=== PATIENT | female | born 1985 | race Caucasian/White ===

== ENCOUNTER 2016-04-23 15:40 | Emergency (ER) | payer OTHER ==
[2016-04-23 15:52] VITALS: RESP 16
--- NOTE | 2016-04-23 16:45 | ED ---
General Adult HPI - General Chief complaint: Vaginal Bleeding Stated complaint: 5 weeks /Spotting Time Seen by Provider: 04/23/16 16:03 Source: patient, family, RN notes reviewed Mode of arrival: ambulatory Limitations: no limitations - History of Present Illness Initial comments: 31-year-old female presenting for vaginal bleeding in early . Patient states that she thought she was last week by home test. She states her last period was in February but light at that time. She is uncertain how far along she is at this point. She does state that over the past 2 days she has noticed some small amount of spotting. She denies any abdominal pain associated. She denies any nausea or vomiting. She is with a stillborn in her first and a healthy child from her second . She denies any other significant medical problems. She denies any fevers or chills. She denies any urinary symptoms. She denies any vaginal discharge. - Related Data Home Medications Medication Instructions Recorded Confirmed Hydrocodone/Acetaminophen 1 tab PO TID PRN 01/22/15 04/23/16 [Hydrocodon-Acetaminoph 7.5-325] ALPRAZolam [Xanax] 1 mg PO DAILY PRN 04/23/16 04/23/16 Previous Rx's Medication Instructions Recorded Umo-Uleq-Mfhnx Acid 1 cap PO DAILY #30 cap 04/23/16 [-U Capsule] Allergies Allergy/AdvReac Type Severity Reaction Status Date / Time No Known Allergies Allergy Verified 04/23/16 16:17 Review of Systems ROS Statement: Those systems with pertinent positive or pertinent negative responses have been documented in the HPI. ROS Other: All systems not noted in ROS Statement are negative. Past Medical History Past Medical History: No Reported History History of Any Multi-Drug Resistant Organisms: None Reported Past Surgical History: Cholecystectomy, Orthopedic Surgery Additional Past Surgical History / Comment(s): carpal tunnel Past Psychological History: Anxiety, Depression Smoking Status: Current every day smoker Past Alcohol Use History: None Reported Past Drug Use History: Marijuana General Exam - General Exam Comments Initial Comments: General: Awake and Alert. No acute distress. Does not appear acutely ill. Eyes: SANG, EOM intact. No nystagmus. No scleral icterus. HENT: Atraumatic, normocephalic. Mucous membranes moist. Trachea midline. Neck: The neck is supple, there is no tenderness or JVD. Cardiovascular: Regular rate and rhythm. No murmur, rub, or gallop is appreciated. Distal pulses intact. Respiratory: Lungs are clear to auscultation bilaterally. No wheezes, rales, rhonchi. No respiratory distress. Gastrointestinal: Soft, Nontender. No rebound or guarding. Non-distended. No masses or organomegaly noted. No CVA tenderness. Musculoskeletal: No tenderness. Normal ROM. No gross deformity. No strength deficits. Neurological: A&Ox3. CN II-XII grossly intact, There are no obvious motor or sensory deficits. Coordination appears grossly intact. Speech is normal. Skin: Skin is warm and dry and no rashes or lesions are noted. Psychiatric: Cooperative, appropriate mood & affect, normal judgment. Limitations: no limitations Course Vital Signs 04/23/16 04/23/16 15:49 18:00 Temperature 98.1 F 97.8 F Pulse Rate 83 74 Respiratory 16 16 Rate Blood Pressure 124/68 120/70 O2 Sat by Pulse 99 99 Oximetry Medical Decision Making - Medical Decision Making 31-year-old female presenting for vaginal bleeding in early . No significant abdominal tenderness on examination or concerning for peritonitis this time. Lab work showing stable CBC. Stable BMP. Patient does not require RhoGAM at this time. Pelvic ultrasound shows early gestaional sack but no fetus. BHCG reflects early . Patient was reevaluated and remained stable throughout her course in ED. Pt and updated on results and imaging. Discussed reassuring findings at this time but need for close CODER OPERATOR follow up. Discussed pelvic rest and follow -up with CODER OPERATOR. Patient states she is planning to see her PCP next week for referral to OB to follow up with Dr. Robin. Discussed concerning signs symptoms for immediate return to the ED. Patient is agreeable with plan and discharge home. Patient was pried with Rx for vitamins. - Lab Data Result diagrams: 04/23/16 16:29 04/23/16 16:29 Lab Results 04/23/16 04/23/16 04/23/16 Range/Units 16:29 16:29 16:29 WBC 7.7 (3.8-10.6) k/uL RBC 3.97 (3.80-5.40) m/uL Hgb 12.1 (11.4-16.0) gm/dL Hct 37.7 (34.0-46.0) % MCV 95.1 (80.0-100.0) fL MCH 30.4 (25.0-35.0) pg MCHC 32.0 (31.0-37.0) g/dL RDW 12.7 (11.5-15.5) % Plt Count 256 (150-450) k/uL Neutrophils % 59 % Lymphocytes % 32 % Monocytes % 6 % Eosinophils % 1 % Basophils % 0 % Neutrophils # 4.5 (1.3-7.7) k/uL Lymphocytes # 2.5 (1.0-4.8) k/uL Monocytes # 0.4 (0-1.0) k/uL Eosinophils # 0.1 (0-0.7) k/uL Basophils # 0.0 (0-0.2) k/uL Sodium 138 (137-145) mmol/L Potassium 3.8 (3.5-5.1) mmol/L Chloride 102 (98-107) mmol/L Carbon Dioxide 27 (22-30) mmol/L Anion Gap 9 mmol/L BUN 7 (7-17) mg/dL Creatinine 0.58 (0.52-1.04) mg/dL Est GFR (MDRD) Af Amer >60 (>60 ml/min/1.73 sqM) Est GFR (MDRD) Non-Af >60 (>60 ml/min/1.73 sqM) Glucose 95 (74-99) mg/dL Calcium 9.0 (8.4-10.2) mg/dL HCG, Quant 5645.3 mIU/mL Blood Type AB Positive Blood Type Recheck No Antibody Screen NEGATIVE Spec Expiration Date 04/26/2016 - 5689 - Radiology Data Radiology results: report reviewed, image reviewed Disposition Clinical Impression: Vaginal bleeding before 22 weeks gestation Disposition: HOME SELF-CARE Condition: Stable Instructions: First Trimester Vaginal Bleed (ED) Prescriptions: Nez-Jnxb-Lguog Acid [-U Capsule] 1 cap PO DAILY #30 cap Referrals: Soham Simon MD [Primary Care Provider] - 1-2 days Fish Robin DO [Doctor of Osteopathic Medicine] - 1-2 days Time of Disposition: 17:50
[2016-04-23 16:46] LABS: Basophils % (A) 0 %; CHCM 32.8; Eosinophils # (A) 0.1 k/uL (0-0.7); Eosinophils % (A) 1 %; HCT 37.7 % (34.0-46.0); HDW 2.07; HGB 12.1 gm/dL (11.4-16.0); Luc # (Auto) 0.11; Luc % (Auto) 2; Lymphocytes # (A) 2.5 k/uL (1.0-4.8); Lymphocytes % (A) 32 %; MCH 30.4 pg (25.0-35.0); MCV 95.1 fL (80.0-100.0); Mean Platelet Volume 7.8; Monocytes # (A) 0.4 k/uL (0-1.0); Monocytes % (A) 6 %; Neutrophils # (A) 4.5 k/uL (1.3-7.7); Neutrophils % (A) 59 %; RBC 3.97 m/uL (3.80-5.40); RDW 12.7 % (11.5-15.5); WBC 7.7 k/uL (3.8-10.6); WBC (Perox) 7.93
[2016-04-23 16:56] LABS: Anion Gap 9 mmol/L; Blood Urea Nitrogen 7 mg/dL (7-17); Carbon Dioxide 27 mmol/L (22-30); Chloride 102 mmol/L (98-107); Glucose 95 mg/dL (74-99); Non-African American GFR(MDRD) >60 (>60 ml/min/1.73 sqM); Potassium 3.8 mmol/L (3.5-5.1); Sodium 138 mmol/L (137-145)
--- NOTE | 2016-04-23 17:03 | US ---
EXAMINATION TYPE: US OB <= 14 wk fetus DATE OF EXAM: 04/23/2016 4:42 PM COMPARISON: NONE CLINICAL HISTORY: Pain. spotting 2 days ago EXAM PERFORMED: EXAM MEASUREMENTS: GESTATIONAL AGE / DATING Physician Established: not established Dates by LMP: (5 weeks/3 days) EDC: 12/21/2016 Dates by First Scan: this is first scan Dates by Current Scan for: only gestational sac seen at this time MATERNAL ANATOMY Uterus: 9.7 x 5.4 x 7.6 cm Right Ovary: 3.1 x 1.5 x 2.5 cm Left Ovary: 3.9 x 2.7 x 3.7 cm Post CDS / Adnexa: wnl Presence of free fluid: none GESTATION / SURVEY MSD: 0.9 cm measures out of range, too early Yolk Sac (normal less than 6mm): not seen Date of LMP: 03/16/2016 Beta HcG (if available): not available TECHNOLOGIST IMPRESSION: possible early IUP with only gestational sac seen at this time, recommend s erial beta levels and follow up ultrasound. IMPRESSION: There is a intrauterine gestational sac with size that corresponds to 5 weeks 3 days. Follow-up exam is recommended in 14 days to confirm a living fetus if clinically indicated.
[2016-04-23 17:13] LABS: HCG,Quantitative Serum 5645.3 mIU/mL
[2016-04-23 18:01] VITALS: BP 120/70; PULSE 74; TEMP 97.8
== END 2016-04-23 18:00 | disposition home or self-care (01) ==
LOC: EC 15:40
DX: O20.9 Hemorrhage in early pregnancy, unspecified (principal); Z3A.01 Less than 8 weeks gestation of pregnancy; O99.331 Smoking (tobacco) complicating pregnancy, first trimester; F17.200 Nicotine dependence, unspecified, uncomplicated
CPT/HCPCS: 36415; 76801; 80048; 84702; 85025; 86850; 86900; 86901; 99284

== ENCOUNTER → 2016-06-17 | Outpatient (CLI) | payer OTHER ==
--- NOTE | 2016-06-17 10:21 | US ---
EXAMINATION TYPE: US OB <= 14 wk fetus DATE OF EXAM: 06/17/2016 10:06 AM COMPARISON: 04/23/2016 CLINICAL HISTORY: Confirm Dates Z36. EXAM PERFORMED: OBTA EXAM MEASUREMENTS: GESTATIONAL AGE / DATING Physician Established: (13 weeks/2 days) EDC: 12/21/2016 Dates by LMP: unknown Dates by First Scan: ENGINEERING PROJECT MANAGER Dates by Current Scan for: (12 weeks/5 days) EDC: 12/25/2016 MATERNAL ANATOMY Uterus: 11.1 x 11.1 x 9.7cm Right Ovary: 1.9 x 1.6 x 1.4cm Left Ovary: 3.1 x 2.5 x 2.1cm Post CDS / Adnexa: wnl Presence of free fluid: no Presence of corpus luteal cyst: not seen Presence of subchorionic bleed: no GESTATION / SURVEY CRL: 6.3cm (12 weeks/5 days) MSD: wnl Yolk Sac (normal less than 6mm): not seen Heart Rate: 169 bpm Rhythm: Normal IUP: Viable IUP Date of LMP: unknown Beta HcG (if available): not available IMPRESSION: Viable of 12 weeks 5 days with an EDC of 12/25/2016 and a heart rate of 169 bpm
[2016-06-17 10:42] LABS: CH 31.2; CHCM 32.7; HCT 40.9 % (34.0-46.0); HDW 2.08; HGB 13.3 gm/dL (11.4-16.0); MCH 31.1 pg (25.0-35.0); MCHC 32.5 g/dL (31.0-37.0); MCV 95.7 fL (80.0-100.0); Mean Platelet Volume 8.5; RBC 4.27 m/uL (3.80-5.40); WBC 9.5 k/uL (3.8-10.6)
[2016-06-17 10:58] LABS: Glucose 74 mg/dL (74-99); Non-African American GFR(MDRD) >60 (>60 ml/min/1.73 sqM)
[2016-06-18 07:45] LABS: HIV-1/HIV-2 Ab Screen NONREAC (NON REAC)
== END | disposition home or self-care (01) ==
LOC: RADUSWWP 09:34
PROVIDERS: ATTEND Obstetrics & Gynecology
DX: Z36 Encounter for antenatal screening of mother (principal); Z3A.12 12 weeks gestation of pregnancy
CPT/HCPCS: 36415; 76801; 82565; 82947; 85027; 86762; 86780; 86850; 86900; 86901; 87340; 87389

== ENCOUNTER 2016-08-23 17:57 | Outpatient (CLI) | payer OTHER ==
[2016-08-23 18:34] LABS: Amorphous Sediment,Urine Rare /hpf; Appearance,Urine Cloudy (Clear); Bilirubin,Urine Negative (Negative); Glucose,Urine (UA) Negative (Negative); Ketones,Urine Negative (Negative); Leukocyte Esterase,Urine Small (Negative); Mucus,Urine Rare /hpf; Nitrite,Urine Negative (Negative); Particle Count 10276; Protein,Urine Negative (Negative); RBC,Urine 4 /hpf (0-5); Specific Gravity,Urine 1.015 (1.001-1.035); Squamous Epithelial Cell,Urine 4 /hpf (0-4); UA Billing (MACRO vs. MICRO) MICRO; Urobilinogen,Urine <2.0 mg/dL (<2.0); WBC,Urine 2 /hpf (0-5)
[2016-08-23 18:43] VITALS: BP 139/67; PULSE 76; RESP 16; TEMP 98
--- NOTE | 2016-08-23 21:15 | P.MSEPDOC ---
Presenting Problems - Arrival Data Date of Arrival on Unit: 08/23/16 Time of Arrival on Unit: 17:55 Mode of Transport: Ambulatory - Complaint OB-Reason for Admission/Chief Complaint: Other Medical History - Information : 3 Para: 1 Term: 1 : 0 Abortions: Spontaneous or Elective: 0 Number of Living Children: 1 - Gestational Age Expected Date of Delivery: 12/21/16 Gestational Age by OBED (wks/days): 22 Weeks and 6 Days Review of Systems - Review of Systems Constitutional: No problems Breast: No problems ENT: No problems Cardiovascular: No problems Respiratory: No problems Gastrointestinal: No problems Genitourinary: No problems Musculoskeletal: No problems Neurological: No problems Skin: No problems Vital Signs - Temperature Temperature: 98 F Temperature Source: Oral - Pulse Brachial Pulse Rate: 76 Pulse Assessment Method: Automatic Cuff - Respirations Respiratory Rate: 16 Oxygen Delivery Method: Room Air - Blood Pressure Right Arm Blood Pressure: 139/67 Blood Pressure Mean: 91 Blood Pressure Source: Automatic Cuff Medical Screen Scoring (Pre) - Cervical Exam Dilation: Exam Deferred - Uterine Contractions Frequency: N/A Duration: N/A Intensity: N/A - Maternal Vital Signs Maternal Temperature: N/A Maternal Blood Pressure: N/A Signs of Preeclampsia: N/A Maternal Respirations: N/A - Maternal Trauma Maternal Trauma: N/A - Total Score Total Score (Pre): 0 - Level of Risk Level of Risk: N/A Physician Notification (Pre) - Physician Notified Physician Notified Date: 08/23/16 Physician Notified Time: 18:12 Physician/Practitioner Notifed:: alison Spoke With: alison - Notification Comment Comment: would like ua sent. Medical Screen Scoring (Post) - Cervical Exam Dilation: Exam Deferred - Uterine Contractions Frequency: N/A - Maternal Vital Signs Maternal Temperature: N/A Maternal Blood Pressure: N/A Signs of Preeclampsia: N/A Maternal Respirations: N/A - Maternal Trauma Maternal Trauma: N/A - Assessment Position: N/A Station: N/A - Total Score Total Score (Post): 0 - Post Treatment Level of Risk Post Treatment Level of Risk: N/A Physician Notification (Post) - Physician Notified Physician Notified Date: 08/23/16 Physician Notified Time: 19:15 Physician/Practitioner Notified:: alison Spoke With: alison New Order Received: Yes - Notification Comment Comment: discharge home. Disposition - Disposition OB Disposition: Physician follow up in office (Patient has appointment with her doctor tomorrow), Discharge to home Discharge Date: 08/23/16 Discharge Time: 19:20 I agree with the RN Medical Screening Exam: Yes Risk & Benefit of care provided described in d/c instruction: Yes Diagnosis: RELATED CONDITIONS, UNSPECIFIED, SECOND TRIMESTER ( Ligament pain)
== END 2016-08-23 19:20 | disposition home or self-care (01) ==
LOC: FBPOP 17:57
PROVIDERS: ATTEND Obstetrics & Gynecology
DX: O26.892 Other specified pregnancy related conditions, second trimester (principal); R10.2 Pelvic and perineal pain; Z3A.22 22 weeks gestation of pregnancy
CPT/HCPCS: 81001; G0463; 99213

== ENCOUNTER → 2016-10-10 | Outpatient (CLI) | payer OTHER ==
[2016-10-10 10:41] LABS: CH 32.4; CHCM 33.8; HCT 36.3 % (34.0-46.0); HGB 12.3 gm/dL (11.4-16.0); MCH 32.7 pg (25.0-35.0); MCV 96.4 fL (80.0-100.0); Mean Platelet Volume 7.5; RBC 3.77 m/uL (3.80-5.40); RDW 12.6 % (11.5-15.5); WBC 10.5 k/uL (3.8-10.6)
== END | disposition home or self-care (01) ==
LOC: LABWHC1 09:11
PROVIDERS: ATTEND Obstetrics & Gynecology
DX: Z34.83 Encounter for supervision of other normal pregnancy, third trimester (principal)
CPT/HCPCS: 36415; 82950; 85027

== ENCOUNTER 2016-12-01 11:43 | Outpatient (CLI) | payer OTHER ==
[2016-12-01 12:56] VITALS: BP 110/63; PULSE 68; RESP 16; TEMP 98.1
--- NOTE | 2016-12-01 21:07 | P.MSEPDOC ---
Presenting Problems - Arrival Data Date of Arrival on Unit: 12/01/16 Time of Arrival on Unit: 11:50 Mode of Transport: Wheelchair - Complaint OB-Reason for Admission/Chief Complaint: Rule Out PROM Comment: PT SENT OVER FROM OFFICE TO HAVE AMMNISURE DONE PT HAD U/S IN OFFICE WITH POCKETS OF FLUID NOTED ON U/S Medical History - Information : 3 Para: 1 Term: 1 : 0 Abortions: Spontaneous or Elective: 0 Number of Living Children: 1 - Gestational Age Expected Date of Delivery: 12/21/16 Gestational Age by OBED (wks/days): 37 Weeks and 1 Days - History Complications: Smoker Review of Systems - Review of Systems Constitutional: No problems Breast: No problems ENT: No problems Cardiovascular: No problems Respiratory: No problems Gastrointestinal: No problems Genitourinary: No problems Musculoskeletal: No problems Vital Signs - Temperature Temperature: 98.1 F Temperature Source: Oral - Pulse Right Brachial Pulse Rate: 68 Pulse Assessment Method: Automatic Cuff - Respirations Respiratory Rate: 16 Oxygen Delivery Method: Room Air O2 Sat by Pulse Oximetry: 98 - Blood Pressure Right Arm Blood Pressure: 110/63 Blood Pressure Mean: 78 Blood Pressure Source: Automatic Cuff Medical Screen Scoring (Pre) - Cervical Exam Dilation: 1-3 cm = 1 Effacement: More than 50% = 2 Membranes: Intact - Uterine Contractions Frequency: > or = 36 weeks =2 Duration: N/A Intensity: N/A - Maternal Vital Signs Maternal Temperature: N/A Maternal Blood Pressure: N/A Signs of Preeclampsia: N/A Maternal Respirations: N/A - Maternal Trauma Maternal Trauma: N/A - Assessment Baseline FHR: 140 Heart Rate - NICHD Category: Category I (Normal) = 0 NST: Reactive Position: N/A Station: N/A - Total Score Total Score (Pre): 5 - Level of Risk Level of Risk: Low (0-5) Physician Notification (Pre) - Physician Notified Physician Notified Date: 12/01/16 Physician Notified Time: 12:40 Spoke With: DR MELODY Montes Order Received: Yes - Notification Comment Comment: MAY DISCHARGE TO HOME Disposition - Disposition OB Disposition: Discharge to home Discharge Date: 12/01/16 Discharge Time: 12:50 I agree with the RN Medical Screening Exam: Yes Risk & Benefit of care provided described in d/c instruction: Yes Diagnosis: FALSE LABOR AT OR AFTER 37 COMPLETED WEEKS OF GESTATION
== END 2016-12-01 12:50 | disposition home or self-care (01) ==
LOC: FBPOP 11:43
PROVIDERS: ATTEND Obstetrics & Gynecology
DX: O47.1 False labor at or after 37 completed weeks of gestation (principal); Z3A.37 37 weeks gestation of pregnancy
CPT/HCPCS: 59025; 84112; G0463; 99213

== ENCOUNTER 2016-12-01 18:01 | Inpatient (IN) | payer OTHER ==
[2016-12-01] MEDS ORDERED: CARBOPROST TROMETHAMINE 250 MCG/ML 1 ML AMP IM PRN (18:39)
[2016-12-01] MEDS ORDERED: OXYTOCIN 10 UNIT/ML 1 ML VIAL IM PRN (18:39)
[2016-12-01] MEDS ORDERED: LIDOCAINE 1% (PF) 10 MG/ML (30 ML SDV) SQ PRN (18:39)
[2016-12-01] MEDS ORDERED: METHYLERGONOVINE 0.2 MG/ML 1 ML AMP IM PRN (18:39)
[2016-12-01] MEDS ORDERED: TERBUTALINE 1 MG/ML VIAL SQ PRN (18:39)
[2016-12-01] MEDS ORDERED: BUTORPHANOL 1 MG/ML 1 ML VIAL IV PRN (18:41)
[2016-12-01] MEDS ORDERED: OXYTOCIN 20 UNITS/1000 ML NS 1,000 ML IV SCH ×2 (18:45→21:30)
[2016-12-01] MEDS ORDERED: LACTATED RINGERS 1,000 ML IV SCH (18:45)
[2016-12-01 19:00] VITALS: BMI 63.3
[2016-12-01 19:06] LABS: Basophils % (A) 0 %; CH 32.3; CHCM 34.6; Eosinophils # (A) 0.1 k/uL (0-0.7); Eosinophils % (A) 1 %; HCT 38.3 % (34.0-46.0); HDW 2.71; HGB 13.8 gm/dL (11.4-16.0); Luc # (Auto) 0.43; Luc % (Auto) 2; Lymphocytes % (A) 15 %; MCH 33.9 pg (25.0-35.0); MCHC 36.1 g/dL (31.0-37.0); MCV 93.7 fL (80.0-100.0); Mean Platelet Volume 8.6; Monocytes # (A) 0.8 k/uL (0-1.0); Monocytes % (A) 4 %; Neutrophils # (A) 15.6 k/uL (1.3-7.7); Neutrophils % (A) 78 %; RBC 4.09 m/uL (3.80-5.40); RDW 12.6 % (11.5-15.5); WBC (Perox) 20.08
[2016-12-01] MEDS ORDERED: AMPICILLIN 2,000 MG in SODIUM CHLORIDE 0.9% 100 ML IVPB STA (19:52)
--- NOTE | 2016-12-01 21:02 | P.HPOB ---
History of Present Illness H&P Date: 12/01/16 Chief Complaint: Contractions, questionable spontaneous rupture membranes This is a 31-year-old female 3 para 1 with an estimated date of confinement of 12/21/2016, estimated gestational age of 37 and one sevenths weeks, who presented to labor and delivery triage complaining of contractions that have increased through the day and become stronger and more regular. In addition she did have some leakage of a brownish discharge since approximately 7 PM last night. She was seen in the office for routine ultrasound late this morning and was found to have normal fluid level at 10.7. She was seen in triage shortly after her ultrasound and amnisure was negative at that time and there is a small amount of light brown discharge noted. She had worn the same panty liner all morning with no increase in discharge. When she arrived in triage this evening, she still had a brown discharge with some bloody show and positive amnisure. She was noted to be mamadou every 2 minutes on arrival. care has been with Dr. Robin and has been uncomplicated per patient. labs: Random glucose-74 Hepatitis B surface antigen-negative Hemoglobin-13.3 Syphilis antibody-nonreactive Rubella-immune Light type-AB+ Antibody screen-negative HIV-nonreactive Obstetrical ultrasound at 19 weeks showed normal anatomy with possible placental lakes noted. 1 hour Glucola-90 Group B streptococcus-negative Obstetrical history: . She has a history of a miscarriage at approximately 5 months that did require dilation and curettage. She also has a history of a vaginal delivery at 38 weeks with no complications. Gynecologic history: She denies any history of infections. Review of Systems Constitutional: Denies chills, Denies fever Eyes: denies blurred vision, denies pain Ears, nose, mouth and throat: Denies headache, Denies sore throat Cardiovascular: Denies chest pain, Denies shortness of breath Respiratory: Denies cough Gastrointestinal: Reports abdominal pain (Contractions) Genitourinary: Reports pelvic pain, Reports , Reports vaginal discharge Musculoskeletal: Reports low back pain Neurological: Denies numbness, Denies weakness Psychiatric: Reports anxiety, Reports depression Past Medical History Past Medical History: No Reported History History of Any Multi-Drug Resistant Organisms: None Reported Past Surgical History: Cholecystectomy, Orthopedic Surgery Additional Past Surgical History / Comment(s): carpal tunnel Past Psychological History: Anxiety, Depression Smoking Status: Current every day smoker Past Alcohol Use History: None Reported Past Drug Use History: Marijuana Medications and Allergies Home Medications Medication Instructions Recorded Confirmed Type Cdc-Mwna-Nopqh Acid 1 cap PO DAILY #30 cap 04/23/16 12/01/16 Rx [-U Capsule (formulary)] Allergies Allergy/AdvReac Type Severity Reaction Status Date / Time No Known Allergies Allergy Verified 12/01/16 18:11 Exam Osteopathic Statement: *. No significant issues noted on an osteopathic structural exam other than those noted in the History and Physical/Consult. - Vital Signs Vital signs: Vital Signs Temp Pulse Resp BP 12/01/16 18:38 97.2 F L 72 16 111/64 12/01/16 18:13 97.2 F L 72 16 111/64 Intake and Output 12/01/16 12/01/16 12/01/16 06:59 14:59 22:59 Other: Weight 147 kg Patient Weight 12/02/16 06:59 Weight 147 kg HEENT: Within normal limits Heart: Regular rate and rhythm Lungs: Clear to auscultation bilaterally Abdomen: Cervix: On admission was 2 cm/70%/-2 station, positive amnisure heart tones: Reactive Contractions: Approximately every 2 minutes Extremities: Negative Homans Results Result Diagrams: 12/01/16 18:50 Abnormal Lab Results - Last 24 Hours (Table) 12/01/16 12/01/16 Range/Units 18:50 19:58 WBC 20.0 H (3.8-10.6) k/uL Neutrophils # 15.6 H (1.3-7.7) k/uL Fibrinogen 503 H (200-500) mg/dL D-Dimer 1.24 H (<0.60) mg/L FEU Assessment and Plan (1) 37 weeks gestation of Status: Acute (2) Spontaneous rupture of amniotic membranes Status: Acute Plan: Plan is admission for labor. Once she is making cervical change she may have epidural if desired. Expectant management.
--- NOTE | 2016-12-01 21:07 | P.PROBDLV ---
Vaginal Delivery Note - . Vaginal Delivery Note: The patient was admitted with spontaneous rupture of membranes based on positive amnisure and regular contractions. On admission she was noted to be 2 cm. When she reached approximately 3 cm, I was called by nursing staff because they noted a significant amount of bloody show and were concerned with possible early abruption due to the amount of patient pain with the contractions. The patient requested epidural at this time. It was ordered however before it could be placed, the patient became very uncomfortable and was checked again and found to be 4-5 cm. When she did set up for the epidural she had a large gush of water and blood. heart tones were still reactive with no decelerations. At this point she had a strong urge to push and was found to be complete. She did not get the epidural however she did have one dose of Stadol earlier. She began pushing and infant's head delivered across the perineum followed by the anterior shoulder and the remainder the body. Nose and mouth were bulb suctioned immediately after delivery. Significant bloody fluid was noted. Cord was clamped and cut and infant was taken to warmer for evaluation by nursing staff and special care nursing staff. A viable male is noted with scores of 8 at 1 minute and 9 at 5 minutes and weight of 5 lbs. 2 oz. The placenta delivered shortly thereafter, intact, with a three- vessel cord. There was noted to be a marginal cord insertion was some vessels into the membranes. There is a small amount on one edge of some darker colored clot consistent with a possible marginal abruption. Uterus did contract well after oxytocin was given and uterine massage was carried out. Inspection of the perineum revealed bilateral periurethral lacerations. The right one was noted to be bleeding and therefore was anesthetized with 1% lidocaine and then sutured with 3-0 Vicryl suture in a running locked fashion. The left one was noted to be hemostatic and therefore was not sutured. Estimated blood loss from the delivery was approximately 100 mL's. Both mother and are in stable condition at this time. Of note, the mother's white count was noted to be elevated at 20,000. She was given 1 dose of ampicillin during labor. She will be given a second dose after delivery and then observed.
[2016-12-01] MEDS ORDERED: BENZOCAINE/MENTHOL SPRAY 1 GM/SPRAY AEROSOL TOPICAL PRN (21:22)
[2016-12-01] MEDS ORDERED: diphenhydrAMINE 50 MG CAP PO PRN (21:22)
[2016-12-01] MEDS ORDERED: WITCH HAZEL 1 EACH MED..PAD TOPICAL PRN (21:22)
[2016-12-01] MEDS ORDERED: LANOLIN CREAM 5 GM TUBE TOPICAL PRN (21:22)
[2016-12-01] MEDS ORDERED: ACETAMINOPHEN TAB 325 MG TAB PO PRN (21:22)
[2016-12-01] MEDS ORDERED: ZOLPIDEM 5 MG TAB PO PRN (21:22)
[2016-12-01] MEDS ORDERED: diphenhydrAMINE 25 MG CAP PO PRN (21:22)
[2016-12-01] MEDS ORDERED: HYDROCORTISONE 2.5% RECTAL CREAM 30 GM TUBE RECTAL PRN (21:22)
[2016-12-01] MEDS ORDERED: SIMETHICONE 80 MG CHEWABLE PO PRN (21:22)
[2016-12-01] MEDS ORDERED: diphenhydrAMINE 50 MG/ML 1 ML VIAL IVP PRN ×2 (21:22)
[2016-12-01] MEDS ORDERED: Acetaminophen-Codeine 300-30mg TAB PO PRN ×2 (21:22)
[2016-12-01] MEDS: IBUPROFEN 600 MG TAB PO PRN (21:35)
[2016-12-01] MEDS ORDERED: AMPICILLIN 1,000 MG in SODIUM CHLORIDE 0.9% 50 ML IVPB SCH (23:52)
[2016-12-02 08:19] LABS: Basophils % (A) 0 %; CH 32.1; CHCM 34.1; Eosinophils % (A) 0 %; HCT 34.3 % (34.0-46.0); HGB 11.8 gm/dL (11.4-16.0); Luc % (Auto) 1; Lymphocytes # (A) 2.1 k/uL (1.0-4.8); Lymphocytes % (A) 10 %; MCH 32.7 pg (25.0-35.0); MCHC 34.5 g/dL (31.0-37.0); MCV 94.8 fL (80.0-100.0); Mean Platelet Volume 8.4; Monocytes % (A) 5 %; Neutrophils # (A) 17.7 k/uL (1.3-7.7); Neutrophils % (A) 84 %; RBC 3.62 m/uL (3.80-5.40); RDW 12.7 % (11.5-15.5); WBC (Perox) 22.03
[2016-12-02] MEDS: SENNOSIDES-DOCUSATE SODIUM 1 EACH TAB PO SCH ×2 (08:44→21:29)
[2016-12-02] MEDS: IBUPROFEN 600 MG TAB PO PRN ×3 (08:48→23:31)
--- NOTE | 2016-12-02 08:51 | P.PNOBGVD ---
Subjective - Subjective Principal diagnosis: day 1 Interval history: Overall patient is doing very well. She is ambulating, voiding and she is tolerating her diet. It is noted that she white blood cell count still 21,000. Otherwise she voices no complaints. At this time we'll continue to monitor closely with repeat CBC in the morning. Her vital signs otherwise are stable and she is afebrile. Heart regular, lungs clear, extremities without pain. Abdomen soft uterus is firm lochia is reported be light. Baby is doing well. Assessment day 1. Plan continue current care. Patient reports: Reports appetite normal, Reports voiding normally, Reports pain well controlled, Reports ambulating normally [place]: doing well Objective - Latest Vital Signs Latest vital signs: Vital Signs Temp Pulse Resp BP 12/02/16 04:00 98.5 F 68 16 109/58 12/02/16 00:00 97.4 F L 76 16 106/58 12/01/16 22:52 98.2 F 66 16 113/55 12/01/16 22:22 62 16 118/55 12/01/16 21:52 98.8 F 83 16 122/76 12/01/16 21:37 61 16 119/70 12/01/16 21:22 66 16 117/66 12/01/16 21:07 83 16 90/64 12/01/16 20:52 98.0 F 77 16 111/60 12/01/16 18:38 97.2 F L 72 16 111/64 12/01/16 18:13 97.2 F L 72 16 111/64 Intake and Output 12/01/16 12/02/16 12/02/16 22:59 06:59 14:59 Intake Total 2.2 Balance 2.2 Intake: Intake, IV Titration 2.2 Amount Oxytocin 20 Units/1000 ml 2.2 Ns 1,000 ml @ 1 MILLIUNIT/MIN 3 mls/hr IV .Q24H SABINO Rx#:[id number] Other: # Voids 1 1 Weight 147 kg - Exam Lungs: bilateral: normal Chest: Normal S1, Normal S2 Extremities: Present: normal Abdomen: Present: normal appearance, soft Uterus: Present: normal, firm - Labs Labs: Abnormal Lab Results - Last 24 Hours (Table) 12/01/16 12/01/16 12/02/16 Range/Units 18:50 19:58 07:38 WBC 20.0 H 21.0 H (3.8-10.6) k/uL RBC 3.62 L (3.80-5.40) m/uL Neutrophils # 15.6 H 17.7 H (1.3-7.7) k/uL Fibrinogen 503 H (200-500) mg/dL D-Dimer 1.24 H (<0.60) mg/L FEU
[2016-12-03] MEDS: SENNOSIDES-DOCUSATE SODIUM 1 EACH TAB PO SCH ×2 (07:36→20:50)
[2016-12-03] MEDS: IBUPROFEN 600 MG TAB PO PRN ×2 (07:36→14:54)
--- NOTE | 2016-12-03 10:05 | P.DS ---
Providers Date of admission: 12/01/16 18:23 Expected date of discharge: 12/03/16 Attending physician: Fish Robin Primary care physician: Stated None Hospital Course: Patient is doing very well day 2. She is ambulating, voiding, and she is tolerating her diet. She voices no complaints. Vital signs are stable and she is afebrile. Heart regular, lungs clear, extremities without pain. Abdomen is soft uterus is firm lochia is reported be light. Prescription for Motrin and Tylenol No. 3 have been provided. Discharge instructions were thoroughly reviewed. She will follow up with me in 6 weeks. Patient Condition at Discharge: Good Plan - Discharge Summary New Discharge Prescriptions: New Acetaminophen-Codeine 300-30mg [Tylenol #3] 1 tab PO Q4H PRN #30 tablet PRN Reason: Pain Ibuprofen [Motrin] 600 mg PO Q6HR PRN #30 tab PRN Reason: Pain No Action Wuk-Ippk-Ixabb Acid [-U Capsule (formulary)] 1 cap PO DAILY #30 cap Discharge Medication List Jxb-Vutj-Jajho Acid [-U Capsule (formulary)] 1 cap PO DAILY # 30 cap 04/23/16 [Rx] Acetaminophen-Codeine 300-30mg [Tylenol #3] 1 tab PO Q4H PRN #30 tablet [Rx] Ibuprofen [Motrin] 600 mg PO Q6HR PRN #30 tab 12/03/16 [Rx] Follow up Appointment(s)/Referral(s): Fish Robin DO [Doctor of Osteopathic Medicine] - 6 Weeks Activity/Diet/Wound Care/Special Instructions: Lifting, limit stairs and driving, and pelvic rest. If any high temperatures, heavy bleeding, or severe pain call my office Discharge Disposition: HOME SELF-CARE
[2016-12-03 15:52] VITALS: RESP 16
[2016-12-03 21:08] VITALS: BP 140/70; PULSE 83; TEMP 98.6
== END 2016-12-03 22:20 | disposition home or self-care (01) | DRG 774 ==
LOC: FBPOP 18:01 → 4FBP 18:23
PROVIDERS: ADMIT Obstetrics & Gynecology; ATTEND Obstetrics & Gynecology
PROC: 10E0XZZ Delivery of Products of Conception, External Approach (ICD-10-PCS; principal; 2016-12-01)
PROC: 0UQMXZZ Repair Vulva, External Approach (ICD-10-PCS; 2016-12-01)
DX: O45.93 Premature separation of placenta, unspecified, third trimester (principal); O99.344 Other mental disorders complicating childbirth; F32.9 Major depressive disorder, single episode, unspecified; O99.334 Smoking (tobacco) complicating childbirth; D72.829 Elevated white blood cell count, unspecified; O43.193 Other malformation of placenta, third trimester; F41.9 Anxiety disorder, unspecified; O71.82 Other specified trauma to perineum and vulva; F17.200 Nicotine dependence, unspecified, uncomplicated; Z3A.37 37 weeks gestation of pregnancy; Z37.0 Single live birth; Z90.49 Acquired absence of other specified parts of digestive tract; Z87.42 Personal history of other diseases of the female genital tract
CPT/HCPCS: 59025; 85025; 85379; 85384; 86850; 86900; 86901; 88307; 99213

== ENCOUNTER 2017-09-10 22:47 | Inpatient (IN) | payer MEDICAID, OTHER ==
--- NOTE | 2017-09-10 23:39 | ED ---
Psych HPI - General Source: patient, RN notes reviewed Mode of arrival: ambulatory <Nan Stiles - Last Filed: 09/11/17 03:17> <Alejandro Kumar - Last Filed: 09/11/17 09:14> - General Chief Complaint: Psychiatric Symptoms Stated Complaint: Petition Time Seen by Provider: 09/10/17 23:07 - History of Present Illness Initial Comments: This is a 32-year-old female who presents to the emergency department for mental health evaluation. Patient has been petitioned by her "baby daddy." Patient states that she has been dealing with depression for the past 9 months. She states that she was seen on July 16 by her doctor and was prescribed 2 antidepressants. She states that she was taken off of one of the antidepressants and altogether stopped both of them one month ago. She states that she was in counseling for 2-1/2 years and recently stopped seeing her counselor as they became very close personally. She states that she has extensively tried to follow-up with a psychiatrist however there are no local psychiatrist;s that except her health insurance. Patient states that 2 weeks ago she moved out of her home that she had with her significant other and moved in with her mother. She states that tonight she was served petitioned paperwork for mental health evaluation by him. She denies any suicidal or homicidal ideation. She does state that she did cocaine and methamphetamine yesterday at a [employer]. She denies any alcohol use at this time but states she drank yesterday. She denies any visual or auditory hallucinations. Denies any past medical history. Denies recent illnesses or infections. Denies fever, chills, chest pain, shortness of breath, abdominal pain, nausea or vomiting, constipation or diarrhea, dysuria or hematuria, numbness or tingling, headache or vision changes. (Nan Stiles) - Related Data Previous Rx's Medication Instructions Recorded [id number] Acid 1 cap PO DAILY #30 cap 04/23/16 [-U Capsule (formulary)] Acetaminophen-Codeine 300-30mg 1 tab PO Q4H PRN #30 tablet 12/03/16 [Tylenol #3] Ibuprofen [Motrin] 600 mg PO Q6HR PRN #30 tab 12/03/16 Allergies Allergy/AdvReac Type Severity Reaction Status Date / Time No Known Allergies Allergy Verified 09/10/17 23:05 Review of Systems ROS Other: All systems not noted in ROS Statement are negative. <Nan Stiles - Last Filed: 09/11/17 03:17> ROS Other: All systems not noted in ROS Statement are negative. <Alejandro Kumar - Last Filed: 09/11/17 09:14> ROS Statement: Those systems with pertinent positive or pertinent negative responses have been documented in the HPI. Past Medical History Past Medical History: No Reported History History of Any Multi-Drug Resistant Organisms: None Reported Past Surgical History: Cholecystectomy, Orthopedic Surgery Additional Past Surgical History / Comment(s): carpal tunnel Past Psychological History: Anxiety, Depression Smoking Status: Current some day smoker Past Alcohol Use History: Occasional Past Drug Use History: Cocaine, Marijuana, Methamphetamine <Nan Stiles - Last Filed: 09/11/17 03:17> General Exam Limitations: no limitations <Nan Stiles - Last Filed: 09/11/17 03:17> <Alejandro Kumar - Last Filed: 09/11/17 09:14> - General Exam Comments Initial Comments: General: Awake and alert, well-developed; in no apparent distress. HEENT: Head atraumatic, normocephalic. Pupils are equal, round and reactive to light. Extraocular movements intact. Oropharynx moist without erythema or exudate. Neck: Supple. Normal ROM. Cardiovascular: Regular rate and rhythm. No murmurs, rubs or gallops. Chest symmetrical. Respiratory: Lungs clear to auscultation bilaterally. No wheezes, rales or rhonchi. Normal respiratory effort with no use of accessory muscles. Abdomen: Soft, non-tender, non-distended. No rigidity, rebound or guarding. Normal bowel sounds in all 4 quadrants. Musculoskeletal: Normal ROM, no tenderness bilateral upper and lower extremities. Ambulating normally. Skin: [place], warm and dry without rashes or lesions. Neurological: Alert and oriented x3. CN II-XII grossly intact. Speech is fluent and answers are appropriate. No focal neuro deficits. Psychiatric: Normal mood and affect. No overt signs of depression or anxiety noted. (Nan Stiles) Vital Signs 09/10/17 09/10/17 09/11/17 22:59 23:21 01:25 Temperature 98.1 F 97.9 F Pulse Rate 106 H 102 H 81 Respiratory 18 12 19 Rate Blood Pressure 113/74 124/74 110/64 O2 Sat by Pulse 97 98 100 Oximetry 09/11/17 09/11/17 09/11/17 02:36 03:14 05:54 Temperature Pulse Rate Respiratory 18 19 17 Rate Blood Pressure O2 Sat by Pulse Oximetry 09/11/17 09/11/17 06:29 06:38 Temperature 98.8 F Pulse Rate 81 Respiratory 18 19 Rate Blood Pressure 108/58 O2 Sat by Pulse 100 Oximetry Medical Decision Making <Nan Stiles - Last Filed: 09/11/17 03:17> <Alejandro Kumar - Last Filed: 09/11/17 09:14> - Medical Decision Making This is a 32-year-old female who presents to the emergency department for mental health evaluation. Patient was petitioned with supplementation by her significant other. Patient denies any suicidal or homicidal ideation. Denies any hallucinations. Does admit to using methamphetamine and cocaine yesterday as well. BAT is negative. Urine drug screen is positive for cocaine, amphetamines and methamphetamines. Patient was evaluated by EPS nurse. There is no recommendation for admission, however because patient has been petitioned and a supplement order is in place, patient must be evaluated by a psychiatrist. (Nan Stiles) Patient was seen by mental health services with plans to admit. Patient was reevaluated by myself. Patient is resting comfortably in bed. Patient states she is not supposed be on medication at this time. Patient states she did recently see a psychiatrist. Patient denies suicidal or homicidal thoughts at this time. Petition reviewed and is concerning. Positive clinical certificate completed. (Alejandro Kumar) - Lab Data Lab Results 09/10/17 Range/Units 23:18 Urine Opiates Screen Not Detected (NotDetected) Ur Oxycodone Screen Not Detected (NotDetected) Urine Methadone Screen Not Detected (NotDetected) Ur Propoxyphene Screen Not Detected (NotDetected) Ur Barbiturates Screen Not Detected (NotDetected) U Tricyclic Antidepress Not Detected (NotDetected) Ur Phencyclidine Scrn Not Detected (NotDetected) Ur Amphetamines Screen Detected H (NotDetected) U Methamphetamines Scrn Detected H (NotDetected) U Benzodiazepines Scrn Not Detected (NotDetected) Urine Cocaine Screen Detected H (NotDetected) U Marijuana (THC) Screen Not Detected (NotDetected) Disposition <Nan Stiles - Last Filed: 09/11/17 03:17> Is patient prescribed a controlled substance at d/c from ED?: No Decision Time: 09:14 <Alejandro Kumar - Last Filed: 09/11/17 09:14> Clinical Impression: Depression, Acute psychosis Disposition: TRANSFER TO PSYCH HOSP/UNIT Referrals: Soham Simon MD [Primary Care Provider] - 1-2 days
[2017-09-10 23:49] LABS: Cocaine Screen,Urine Detected (NotDetected); Opiate Screen,Urine Not Detected (NotDetected); Phencyclidine Screen,Urine Not Detected (NotDetected); Urn Cannabinoid Scrn Not Detected (NotDetected)
[2017-09-10 23:50] LABS: Amphetamine Screen,Urine Detected (NotDetected); Barbiturate Screen,Urine Not Detected (NotDetected); Benzodiazepines Screen,Urine Not Detected (NotDetected); Methadone Screen, Urine Not Detected (NotDetected); Oxycodone Screen, Urine Not Detected (NotDetected); Tricyclic Antidepressant,Urine Not Detected (NotDetected)
[2017-09-11 13:13] VITALS: BMI 22.4
[2017-09-11] MEDS ORDERED: LORazepam 1 MG TAB PO PRN (13:23)
[2017-09-11] MEDS ORDERED: MAGNESIUM HYDROXIDE 2,400 MG/10 ML CUP PO PRN (13:23)
[2017-09-11] MEDS ORDERED: ZIPRASIDONE 20 MG VIAL IM PRN (13:23)
[2017-09-11] MEDS ORDERED: MAG HYDROX/AL HYDROX/SIMETH 30 ML CUP PO PRN (13:23)
[2017-09-11] MEDS ORDERED: LORazepam 2 MG/ML INJ IM PRN (13:48)
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
[2017-09-11 18:29] LABS: Amorphous Sediment,Urine Occasional /hpf; Appearance,Urine Turbid (Clear); Bacteria,Urine Moderate /hpf; Bilirubin,Urine Negative (Negative); Blood,Urine Negative (Negative); Color,Urine Yellow; Glucose,Urine (UA) Negative (Negative); Ketones,Urine Negative (Negative); Leukocyte Esterase,Urine Moderate (Negative); Nitrite,Urine Negative (Negative); Protein,Urine Trace (Negative); Squamous Epithelial Cell,Urine 14 /hpf (0-4); Urobilinogen,Urine <2.0 mg/dL (<2.0)
[2017-09-12 11:07] LABS: Basophils % (A) 0 %; Eosinophils # (A) 0.1 k/uL (0-0.7); Eosinophils % (A) 1 %; HGB 15.9 gm/dL (11.4-16.0); Lymphocytes % (A) 24 %; MCH 28.4 pg (25.0-35.0); MCHC 31.9 g/dL (31.0-37.0); MCV 89.2 fL (80.0-100.0); Mean Platelet Volume 6.6; Monocytes # (A) 0.5 k/uL (0-1.0); Monocytes % (A) 6 %; Neutrophils # (A) 5.5 k/uL (1.3-7.7); Neutrophils % (A) 67 %; Platelet Count 331 k/uL (150-450); RDW 12.9 % (11.5-15.5); WBC 8.3 k/uL (3.8-10.6)
[2017-09-12 11:27] LABS: ALT 21 U/L (9-52); AST 16 U/L (14-36); Albumin 4.6 g/dL (3.5-5.0); Alkaline Phosphatase 49 U/L (38-126); Anion Gap 11 mmol/L; Blood Urea Nitrogen 15 mg/dL (7-17); Calcium 9.9 mg/dL (8.4-10.2); Carbon Dioxide 26 mmol/L (22-30); Chloride 101 mmol/L (98-107); Glucose 75 mg/dL (74-99); Sodium 138 mmol/L (137-145); Total Bilirubin 0.7 mg/dL (0.2-1.3); Total Protein 7.1 g/dL (6.3-8.2)
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
[2017-09-14 07:00] VITALS: BP 121/73; PULSE 65; RESP 16; TEMP 98.6
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
== END 2017-09-14 12:15 | disposition home or self-care (01) | DRG 881 ==
LOC: EC 22:47 → 3MHU 09-11 11:56
PROVIDERS: ADMIT Psychiatry & Neurology Psychiatry; ATTEND Psychiatry & Neurology Psychiatry
DX: F32.9 Major depressive disorder, single episode, unspecified (principal); R45.851 Suicidal ideations; F41.9 Anxiety disorder, unspecified; R45.850 Homicidal ideations; F81.9 Developmental disorder of scholastic skills, unspecified; F29 Unspecified psychosis not due to a substance or known physiological condition; F22 Delusional disorders; F15.10 Other stimulant abuse, uncomplicated; F14.90 Cocaine use, unspecified, uncomplicated; F17.210 Nicotine dependence, cigarettes, uncomplicated; Z71.6 Tobacco abuse counseling; Z71.51 Drug abuse counseling and surveillance of drug abuser; Z71.41 Alcohol abuse counseling and surveillance of alcoholic; Z56.0 Unemployment, unspecified; Z63.79 Other stressful life events affecting family and household; Z63.4 Disappearance and death of family member; Z62.898 Other specified problems related to upbringing; Z82.49 Family history of ischemic heart disease and other diseases of the circulatory system; Z90.49 Acquired absence of other specified parts of digestive tract; Z63.0 Problems in relationship with spouse or partner; Z86.59 Personal history of other mental and behavioral disorders
CPT/HCPCS: 80053; 80306; 81001; 81025; 82075; 84443; 85025; 99285

== ENCOUNTER 2017-11-13 22:26 | Emergency (ER) | payer OTHER ==
[2017-11-13 22:30] VITALS: BP 121/75; PULSE 97; RESP 16; TEMP 98.3
[2017-11-13] MEDS ORDERED: predniSONE 20 MG TAB PO STA (22:45)
[2017-11-13] MEDS ORDERED: IBUPROFEN 600 MG TAB PO STA (22:45)
--- NOTE | 2017-11-13 22:56 | ED ---
ENT HPI - General Chief complaint: ENT Stated complaint: sore throat Time Seen by Provider: 11/13/17 22:37 Source: patient, RN notes reviewed Mode of arrival: ambulatory Limitations: no limitations - History of Present Illness Initial comments: This a 32-year-old female who denies past medical history presents today for chief complaint of sore throat 2 hours. Patient states that about 2 hours ago she started to notice her throat was hurting when she swallowed. In addition she noticed some right-sided neck tenderness to palpation. Patient denies any food allergies tongue or lip swelling, difficulty breathing, sick contacts, fever, chills, nightsweats, muffled voice, trismus, drooling, diarrhea, nausea, vomiting, abdominal or chest pain, rash, dental pain/recent dental procedure or any other associated symptoms. Pt denies taking any medication prior to presentation. Remainder ROS (-). - Related Data Home Medications Medication Instructions Recorded Confirmed Medroxyprogesterone Acetate 150 mg IM Q84D 09/11/17 11/13/17 [Depo-Provera] Melatonin 3 mg PO HS 09/11/17 11/13/17 Previous Rx's Medication Instructions Recorded predniSONE 20 mg PO DAILY 4 Days #4 tab 11/13/17 Allergies Allergy/AdvReac Type Severity Reaction Status Date / Time No Known Allergies Allergy Verified 11/13/17 22:30 Review of Systems ROS Statement: Those systems with pertinent positive or pertinent negative responses have been documented in the HPI. ROS Other: All systems not noted in ROS Statement are negative. Constitutional: Denies: fever, chills, night sweats Eyes: Denies: eye pain, vision change ENT: Reports: as per HPI, throat pain Respiratory: Denies: cough, dyspnea, wheezes, hemoptysis, stridor Cardiovascular: Denies: chest pain, palpitations Gastrointestinal: Denies: abdominal pain, nausea, vomiting, diarrhea, constipation Genitourinary: Denies: urgency, dysuria Musculoskeletal: Denies: arthralgia Skin: Denies: rash, lesions Neurological: Denies: headache, weakness, numbness, paresthesias, confusion, abnormal gait Past Medical History Past Medical History: No Reported History, Musculoskeletal Disorder Additional Past Medical History / Comment(s): Pt. states she has a R rotator cuff History of Any Multi-Drug Resistant Organisms: None Reported Past Surgical History: Cholecystectomy, Orthopedic Surgery Additional Past Surgical History / Comment(s): bilat. carpal tunnel surgery Additional Past Anesthesia/Blood Transfusion Reaction / Comment(s): No blood transfusion history Past Psychological History: Anxiety, Depression Smoking Status: Current some day smoker Past Alcohol Use History: Occasional Past Drug Use History: Cocaine, Marijuana, Methamphetamine - Past Family History Mother Family Medical History: No Reported History (mother is 53-year-old no major medical problems.) Father Family Medical History: Hypertension (father is 53-year-old has history of hypertension.) Brother(s) Family Medical History: No Reported History (patient has one brother is no major medical problems) Son(s) Family Medical History: No Reported History (patient has 2 sons) General Exam - General Exam Comments Initial Comments: General: The patient is awake and alert, in no distress, and does not appear acutely ill. Eye: Pupils are equal, round and reactive to light, extra-ocular movements are intact. No nystagmus. There is normal conjunctiva bilaterally. No signs of icterus. Ears, nose, mouth and throat: There are moist mucous membranes and no oral lesions. Mildly erythematous oropharynx, and tonsils, with mild tonsilar enlargment. No tonsillar exudates. Uvula midline, no evidence of peritonsillar abscess. Palpable anterior cervical lymphadenopathy. No palatal petechiae. Neck: The neck is supple, tenderness to palpation over the right anterior neck. Cardiovascular: There is a regular rate and rhythm. No murmur, rub or gallop is appreciated. Respiratory: Lungs are clear to auscultation, respirations are non-labored, breath sounds are equal. No wheezes, stridor, rales, or rhonchi. GI: No spenomegaly Musculoskeletal: Normal ROM, no tenderness. Strength 5/5. Sensation intact. Pulses equal bilaterally 2+. Neurological: A&O x 3. CN II-XII intact, There are no obvious motor or sensory deficits. Coordination appears grossly intact. Speech is normal. Skin: Skin is warm and dry and no rashes or lesions are noted. Psychiatric: Cooperative, appropriate mood & affect, normal judgment. Limitations: no limitations Course Vital Signs 11/13/17 22:27 Temperature 98.3 F Pulse Rate 97 Respiratory 16 Rate Blood Pressure 121/75 O2 Sat by Pulse 98 Oximetry Medical Decision Making - Medical Decision Making 32yo with cc of sore throat concerning for possible pharyngitis/tonsillitis. Pt appears well, nontoxic in no acute respiratory distress. PE reveal erythematous oropharynx and tonsils with mild tonsilar enlargement. No exudated. Pt VS stable , afebrile. Rapid strep obtained (-). At this time I feel pt has a viral pharyngitis/tonsilitis. There is no evidence of paratonsillar absces and uvula is midline at this time. Case discussed in detail with Dr. Brambila, at this time we feel pt is stable for d/c with PCP f/u in 1-2 days and RX for prednisone 20mg once daily x4 additional days beginning tmrw. Pt agreed with plan all questions answered to the best of my ability. Pt was instructed to return to the ED for any worsening symptoms, or respiratory distress. Pt verbally agreed to plan and acknowledged understanding, d/c in stable condition. - Lab Data Lab Results 11/13/17 Range/Units 22:48 Group A Strep Rapid Negative (Negative) Disposition Clinical Impression: Tonsillitis Disposition: HOME SELF-CARE Condition: Good Instructions: Tonsillitis (ED) Additional Instructions: Please use medication as discussed. Please follow-up with family doctor in the next 2 days. Please return to emergency room if the symptoms increase or worsen or for any other concerns, as discussed. Prescriptions: predniSONE 20 mg PO DAILY 4 Days #4 tab Is patient prescribed a controlled substance at d/c from ED?: No Referrals: Soham Simon MD [Primary Care Provider] - 1-2 days Time of Disposition: 22:57
== END 2017-11-13 23:40 | disposition home or self-care (01) ==
LOC: EC 22:26
DX: J03.90 Acute tonsillitis, unspecified (principal); F17.200 Nicotine dependence, unspecified, uncomplicated; Z90.49 Acquired absence of other specified parts of digestive tract; Z98.890 Other specified postprocedural states; Z79.3 Long term (current) use of hormonal contraceptives; Z79.899 Other long term (current) drug therapy
CPT/HCPCS: 87081; 87430; 99283; J7512

== ENCOUNTER 2021-12-03 11:50 | Emergency (ER) | payer OTHER ==
[2021-12-03 12:00] VITALS: TEMP 98.1
--- NOTE | 2021-12-03 12:21 | ED ---
General Adult HPI - General Chief complaint: Upper Respiratory Infection Stated complaint: lump in neck Time Seen by Provider: 12/03/21 12:02 Source: patient, RN notes reviewed Mode of arrival: ambulatory Limitations: no limitations - History of Present Illness Initial comments: Patient is a pleasant 36-year-old female presenting to the emergency department with concerns for swollen lymph node. Patient went to the doctor yesterday and was advised to follow-up with ENT. Patient called ENT and they refused to take her because of insurance. Patient asked what she should do and the psychiatric secretary advised her to come to the emergency department. Patient does complain of cough with occasional yellow sputum and congestion for the past one week. A connor was given prescription for cough medication, antibiotics and steroids by her doctor. Patient states the lymph node is nontender. Patient states she was unaware that it was there until her doctor told her. No dyspnea. No difficulty with swallowing - Related Data Home Medications Medication Instructions Recorded Confirmed Medroxyprogesterone Acetate 150 mg IM Q84D 09/11/17 11/13/17 [Depo-Provera] Melatonin 3 mg PO HS 09/11/17 11/13/17 Previous Rx's Medication Instructions Recorded predniSONE [Deltasone] 20 mg PO DAILY 4 Days #4 tab 11/13/17 Allergies Allergy/AdvReac Type Severity Reaction Status Date / Time No Known Allergies Allergy Verified 11/13/17 22:30 Review of Systems ROS Statement: Those systems with pertinent positive or pertinent negative responses have been documented in the HPI. ROS Other: All systems not noted in ROS Statement are negative. Constitutional: Denies: fever Eyes: Denies: eye pain ENT: Reports: congestion. Denies: ear pain Respiratory: Reports: as per HPI, cough Cardiovascular: Denies: chest pain Endocrine: Denies: fatigue Gastrointestinal: Denies: abdominal pain Genitourinary: Denies: dysuria Musculoskeletal: Denies: back pain Skin: Denies: rash Neurological: Denies: weakness Past Medical History Past Medical History: No Reported History, Musculoskeletal Disorder Additional Past Medical History / Comment(s): Pt. states she has a R rotator cuff History of Any Multi-Drug Resistant Organisms: None Reported Past Surgical History: Cholecystectomy, Orthopedic Surgery Additional Past Surgical History / Comment(s): bilat. carpal tunnel surgery Additional Past Anesthesia/Blood Transfusion Reaction / Comment(s): No blood transfusion history Past Psychological History: Anxiety, Depression Smoking Status: Current every day smoker Past Alcohol Use History: Occasional Past Drug Use History: Cocaine, Marijuana, Methamphetamine - Past Family History Mother Family Medical History: No Reported History (mother is 53-year-old no major medical problems.) Father Family Medical History: Hypertension (father is 53-year-old has history of hypertension.) Brother(s) Family Medical History: No Reported History (patient has one brother is no major medical problems) Son(s) Family Medical History: No Reported History (patient has 2 sons) General Exam Limitations: no limitations General appearance: alert, in no apparent distress Head exam: Present: normocephalic Eye exam: Present: normal appearance ENT exam: Present: normal oropharynx Neck exam: Present: lymphadenopathy (Right anterior cervical, mobile and nontender) Respiratory exam: Present: normal lung sounds bilaterally. Absent: respiratory distress, wheezes Cardiovascular Exam: Present: regular rate, normal rhythm GI/Abdominal exam: Present: soft. Absent: tenderness Extremities exam: Present: normal inspection. Absent: pedal edema, calf tenderness Neurological exam: Present: alert Psychiatric exam: Present: normal affect, normal mood Skin exam: Present: normal color Course Vital Signs 12/03/21 11:56 Temperature 98.1 F Pulse Rate 69 Respiratory 16 Rate Blood Pressure 125/74 O2 Sat by Pulse 97 Oximetry Medical Decision Making - Medical Decision Making Discussion had with patient regarding need for follow-up with ENT if swelling of lymph nodes continues or becomes larger or painful. Patient advised she can also return here if needed. Patient is advised to take medications as prescribed. Patient was offered testing for influenza and COVID-19 infection however refuses. Disposition Clinical Impression: Lymphadenopathy Disposition: HOME SELF-CARE Condition: Stable Instructions (If sedation given, give patient instructions): Lymphadenopathy (ED) Additional Instructions: Please do follow-up with primary care physician in the next couple days for recheck. Follow up with ENT, especially if lymph node remains swollen or increases in size or becomes tender. Return to emergency department for increased swelling, difficulty breathing, difficulty swallowing, worsening or changing symptoms or any other concerns. Is patient prescribed a controlled substance at d/c from ED?: No Referrals: [facility] [Primary Care Provider] - 1-2 days Luis Wagner MD [STAFF PHYSICIAN] - 1-2 days Time of Disposition: 12:21
[2021-12-03 12:32] VITALS: BP 126/78; PULSE 80; RESP 18
== END 2021-12-03 12:32 | disposition home or self-care (01) ==
LOC: EC 11:50
DX: R59.1 Generalized enlarged lymph nodes (principal); F17.200 Nicotine dependence, unspecified, uncomplicated
CPT/HCPCS: 99283